=== PATIENT | female | born 1985 | race African-American/Black ===

== ENCOUNTER 2020-07-21 22:10 | Emergency (ER) | payer SELFPAY ==
--- NOTE | ~2020-07-21 | CT_ITS ---
EXAMINATION: CT brain wo con DATE: 07/21/2020 22:32 INDICATION: Fall. Head injury. TECHNIQUE: Computed tomography (CT) of the head was performed without intravenous contrast. The mA wa s adjusted according to patient size. Iterative reconstruction technique was employed. Exam dose: 60 5.33 mGy-cm total exam DLP. COMPARISON: None FINDINGS: Left frontal and left superomedial periorbital hematoma. No skull fracture is evident. Incl uded paranasal sinuses and mastoid air cells are unremarkable. No intracranial mass lesion or hemorrhage or cerebrovascular accident. No midline shift or mass effec t effect. No subdural or epidural hematoma. Normal ventricular size. IMPRESSION: Left frontal and left superomedial periorbital hematoma; no skull fracture or acute intr acranial finding Reviewed, dictated and finalized at [facility]. Reviewed, dictated and finalized at [facility]. IMPRESSION: Left frontal and left superomedial periorbital hematoma; no skull fracture or acute intracranial finding
[2020-07-21 22:10] VITALS: BP 137/99; PULSE 96; RESP 18; TEMP 37.1; O2SAT 100
--- NOTE | 2020-07-21 22:23 | PC.NURSE ---
Patient taken to CT.
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
== END 2020-07-21 23:17 | disposition home or self-care (01) ==
PROVIDERS: Emergency Provider Family Medicine
DX: S00.12XA Contusion of left eyelid and periocular area, initial encounter (principal); S50.312A Abrasion of left elbow, initial encounter; F10.10 Alcohol abuse, uncomplicated; W01.0XXA Fall on same level from slipping, tripping and stumbling without subsequent striking against object, initial encounter
CPT/HCPCS: 70450; 99284